=== PATIENT | male | born 1955 | race Caucasian/White ===

== ENCOUNTER 2019-09-27 12:13 | Outpatient (CLI) | payer OTHER, SELFPAY ==
--- NOTE | ~2019-09-27 | XR_ITS ---
XR shoulder LT min 2V DATE: 09/27/2019 13:01 INDICATION: Left shoulder pain, limited range of motion following fall, injury TECHNIQUE: 4 views of left shoulder COMPARISON: None FINDINGS: There are 2 anchor devices in the left humeral head. There is diffuse osteopenia. Normal alignment at the acromioclavicular and glenohumeral joints. There is mild osteoarthritis of th e left glenohumeral joint. No fracture, dislocation, periosteal reaction or bone destruction or significant abnormal left should er calcification is noted. IMPRESSION: Osteopenia Postoperative change Mild osteoarthritis at the glenohumeral joint Reviewed, dictated and finalized at location A.
--- NOTE | ~2019-09-27 | XR_ITS ---
EXAMINATION: XR knee RT min 4V DATE: 09/27/2019 13:01 INDICATION: Right knee pain. TECHNIQUE: 4 views of right knee were obtained. COMPARISON: None. FINDINGS: Bone alignment is normal. No fracture. There is mild tricompartmental osteoarthritis. No kn ee joint effusion. IMPRESSION: 1. Mild right knee osteoarthritis. Reviewed, dictated and finalized at location A.
== END 2019-09-27 12:14 | disposition home or self-care (01) ==
PROVIDERS: PCP Family Medicine Adolescent Medicine; Visit Provider Family Medicine Adolescent Medicine
DX: M17.11 Unilateral primary osteoarthritis, right knee (principal); M85.88 Other specified disorders of bone density and structure, other site; M19.012 Primary osteoarthritis, left shoulder
CPT/HCPCS: 73030; 73564

== ENCOUNTER 2019-11-10 13:26 | Outpatient (CLI) | payer OTHER, SELFPAY ==
--- NOTE | ~2019-11-10 | MR_ITS ---
EXAMINATION: MR knee RT wo con DATE: 11/10/2019 14:39 INDICATION: Unspecified injury of right lower leg, initial encounter. Right knee pain. TECHNIQUE: Magnetic resonance imaging (MRI) of the right knee was performed without intravenous contr ast. Sequences included axial PD-weighted FS FSE, coronal PD-weighted FSE and PD-weighted FS FSE, sag ittal PD-weighted FSE, and sagittal T2-weighted FS FSE. COMPARISON: Right knee radiographs 11/07/2019 FINDINGS: Medial compartment: Medial meniscus is normal. There is cartilage surface irregularity of tibial condyle and femoral cond yle. There are tiny marginal osteophytes. Lateral compartment: Lateral meniscus is normal. There is cartilage surface irregularity of tibial condyle and femoral con dyle. There are tiny marginal osteophytes. Patellofemoral compartment: There is shallow partial-thickness cartilage loss of patellar lateral facet. There is full-thickness cartilage loss of lateral and central trochlea with mild subchondral edema-like marrow signal intensi ty. Ligaments and tendons: The anterior and posterior cruciate ligaments are normal. Medial collateral ligament is intact. There are changes of prior sprain of fibular collateral ligament characterized by increased signal intensi ty proximally. There is mild patellar tendinopathy. Fluid: There is a small knee joint effusion. There is trace fluid in a Estrada's cyst. IMPRESSION: 1. Severe chondrosis of patellofemoral compartment and mild chondrosis of medial and lateral compartm ents. 2. Small knee joint effusion. Reviewed, dictated and finalized at location A. IMPRESSION: 1. Severe chondrosis of patellofemoral compartment and mild chondrosis of media l and lateral compartments. 2. Small knee joint effusion.
== END 2019-11-10 13:27 | disposition home or self-care (01) ==
LOC: ANHIMG 13:31
PROVIDERS: PCP Family Medicine Adolescent Medicine; Visit Provider Orthopaedic Surgery
DX: S89.91XA Unspecified injury of right lower leg, initial encounter (principal); X58.XXXA Exposure to other specified factors, initial encounter; M25.461 Effusion, right knee
CPT/HCPCS: 73721

== ENCOUNTER 2020-01-17 11:18 | Outpatient (CLI) | payer OTHER, SELFPAY ==
--- NOTE | 2020-01-17 11:20 | ECG_ITS ---
Measurements Intervals [place] Rate: 83 P: 36 HI: 144 QRS: -1 QRSD: 93 T: 1 QT: 344 QTc: 404 Interpretive Statements SINUS RHYTHM EARLY PRECORDIAL R/S TRANSITION VOLTAGE CRITERIA FOR LVH BORDERLINE T WAVE ABNORMALITY- INFERIOR LEADS BORDERLINE ECG Electronically Signed On 01-17-2020 12:13:50 CDT by Aftab Schwab D.O.
[2020-01-17 12:01] LABS: Anion Gap 9 mmol/L (8-16); Blood Urea Nitrogen 18 mg/dL (9-20); Calcium 9.6 mg/dL (8.4-10.2); Carbon Dioxide 33 mmol/L (22-30); Chloride 100 mmol/L (98-107); Estimated Glomerular Filt Rate > 60; Glucose 115 mg/dL (75-110); Potassium 4.3 mmol/L (3.4-5.0); Sodium 142 mmol/L (137-145)
== END 2020-01-17 11:19 | disposition home or self-care (01) ==
LOC: ANHSURGERY 11:20
PROVIDERS: Anesthesiology; PCP Family Medicine Adolescent Medicine; Visit Provider Orthopaedic Surgery
DX: Z01.812 Encounter for preprocedural laboratory examination (principal); E11.9 Type 2 diabetes mellitus without complications; Z01.810 Encounter for preprocedural cardiovascular examination; R94.39 Abnormal result of other cardiovascular function study
CPT/HCPCS: 36415; 80048; 93005

== ENCOUNTER 2020-01-20 01:16 | Outpatient (CLI) | payer OTHER, SELFPAY ==
[2020-01-20 18:11] LABS: SARS-CoV-2 RNA PCR Negative
== END 2020-01-20 01:17 | disposition home or self-care (01) ==
LOC: ANHCOVIDDT 01:16
PROVIDERS: Anesthesiology; PCP Family Medicine Adolescent Medicine; Visit Provider Orthopaedic Surgery
DX: Z20.828 Contact with and (suspected) exposure to other viral communicable diseases (principal)
CPT/HCPCS: 87635; C9803; U0003

== ENCOUNTER 2020-01-22 03:05 | Day surgery (SDC) | payer OTHER, SELFPAY ==
[2020-01-15 09:32] VITALS: BMI 29.2
[2020-01-22] VITALS (9 sets, daily range): BP systolic 102–184; BP diastolic 56–92; PULSE 66–90; RESP 12–20; TEMP 36.1–36.9; O2SAT 98–100; BMI 28.2
--- NOTE | 2020-01-22 05:49 | WPDANESEPP ---
Anes - Eval Pre Procedure Procedure: Operation Date: 01/22/20 07:30 Proposed Procedures p Right Knee Arthroscopy, Proceed As Indicated - Erik Watson MD Date/Time: 01/22/20 05:49 Pre Op Diagnosis: Chondromalacia Right Knee Patient Data Age: 64 Gender: M Height: 5 ft 11 in Weight: 95 kg Allergies Allergy/AdvReac Type Severity Reaction Status Date / Time aloe Allergy Severe SEVERE RASH Verified 01/15/20 09:28 Sulfa (Sulfonamide Allergy Unknown Rash Verified 01/15/20 09:28 Antibiotics) Home Medications Medication Instructions Recorded Confirmed Type metformin 500 mg tablet 500 mg PO BID 11/08/19 01/15/20 History tadalafil 5 mg tablet 5 mg PO DAILY 11/08/19 01/15/20 History testosterone 4 pump TRANSDERM DAILY 11/08/19 01/15/20 History naproxen sodium [Aleve] 220 mg PO BID 01/15/20 01/15/20 History pioglitazone 30 mg PO DAILY 01/15/20 01/15/20 History Patient hx anesthesia problems: none Family hx anesthesia problems: none PMFSH Past Medical History Medical History (Updated 01/22/20 @ 05:50 by Emil Coats CRNA) Diabetes Low testosterone Overweight (BMI 25.0-29.9) Seasonal allergies Surgical History Surgical History History of shoulder surgery RTC Repair S/P rotator cuff repair Family History Family History Other Diabetes mellitus Malignant neoplasm Social History Social History Smoking status: Never smoker Alcohol intake: current Alcohol use details: 6 PER YEAR Living arrangements: with family Comments VR 83 SINUS RHYTHM EARLY PRECORDIAL R/S TRANSITION VOLTAGE CRITERIA FOR LVH BORDERLINE T WAVE ABNORMALITY- INFERIOR LEADS BORDERLINE ECG Exam Day of Procedure 01/22/20 05:49
[2020-01-22] MEDS: ACETAMINOPHEN 500 MG TABLET 1000 MG PO (06:34)
[2020-01-22] MEDS: CELECOXIB 200 MG CAPSULE PO (06:34)
[2020-01-22] MEDS: LACTATED RINGERS 1,000 ML 30 ML IV CONT ×2 (06:45→08:40)
[2020-01-22 06:58] LABS: Glucose Point of Care 175 (65-105)
--- NOTE | 2020-01-22 07:00 | WPDANESEFPP ---
Anes - Eval Final PreProcedure Day of Procedure 01/22/20 07:00 Patient weight: overweight Heart: regular rate and rhythm Lungs: clear to auscultation Airway: Mallampati scale class II Neurological: alert and oriented Last oral intake: >/= 8 hours ASA classification: II Emergent: no Anesthetic plan: proceed Anesthesia type and monitoring: general LMA and standard monitoring Informed Consent: The patient's anesthetic plan and its attendant risks and benefits were discussed with the patient/family/POA. Questions were solicited and answers provided to the satisfaction of the patient/family/POA.
--- NOTE | 2020-01-22 07:26 | WPDHPUPDATE1 ---
History and Physical Update Update Date/Time: 01/22/20 07:26 History and Physical has been reviewed, including an updated exam of the patient. There are NO changes in the patient's condition. Risks, benefits, and alternatives have been discussed and questions answered. Patient agrees to proceed with procedure.
[2020-01-22] MEDS: ceFAZolin 2 GM/D5W 50 ML 2 GM/50 ML BAG IVPB (07:33)
--- NOTE | 2020-01-22 08:41 | P.OP_ITS ---
Procedure Note - Detailed Date of procedure: 01/22/20 Pre-op diagnosis: Chondromalacia Right Knee Post-op diagnosis: other (medial meniscus tear, lateral meniscus tear) Procedure performed: RIGHT KNEE SCOPE WITH PARTIAL MEDIAL AND LATERAL MENISCECTOMY, CHONDROPLASTY, MAJOR SYNOVECTOMY Description of procedure: PATIENT WAS TAKEN TO THE OR. RIGHT LEG WAS PREPPED AND DRAPED STERILE. TROCARS WERE PLACED IN THE USUAL FASHION. CAMERA WAS INTROD UCED. THERE WAS CHONDROMALACIA TO THE PATELLA FEMORAL JOINT. THERE WAS A LOT OF SYNOVITIS IN ALL COMPARTMENTS. THE MEDIAL COMPARTMENT SHOWED CHONDROMALACIA TO THE MED FEMORAL CONDYLE. A SHAVER WAS USED TO PREFORM A CHONDROPLASTY. THERE WAS A SMALL COMPLEX MEDIAL MENISCUS TEAR. THE TEAR WAS RESECTED WITH A BITER AND A SHAVER DOWN TO A SMOOTH BASE. GRADE 2 CHONDROMALACIA UNDERWENT CHONDROPLASTY. WAS ABOUT 10% OF THE MENISCUS WAS REMOVED. THE ACL WAS INTACT. THE LATERAL MENISCUS HAD A SMALL TEAR AT THE ANTERIOR HORN. THE TEAR WAS RESECTED. THE LATERAL COMPARTMENT HAD NO CHONDROMALACIA. THERE WAS SYNOVITIS THAT WAS RESECTED. THE PATELLO FEMORAL JOINT UNDERWENT CHONDROPLASTY. THERE WAS GRADE 3 CHONDROMALACIA IN MOST OF THE TROCHLEA AND PART OF THE PATELLA. THERE WAS A SMALL AREA ON THE TROCHLEA WHICH HAD A FULL THICKNESS DEFECT. SYNOVECTOMY WAS PREFORMED IN THE SUPERIOR MEDIAL COMPARTMENT DUE TO A LARGE PLICA BAND WHICH WAS IMPINGING ON THE TROCHLEA IN FLEXION. THE PATELLA TRACKED WELL WITH NO TILT WITHIN THE TROCHLEA. THE WOUNDS WERE APPROXIMATED WITH 4.0 NYLON. STERILE DRESSING WAS APPLIED. PATIENT WAS EXTUBATED. Anesthesia: GLMA Surgeon: Erik Watson MD Estimated blood loss (mL): 5 Complications: No immediate complications Condition: stable Disposition: PACU
[2020-01-22 08:47] LABS: Glucose Point of Care 191 (65-105)
== END 2020-01-22 10:45 | disposition home or self-care (01) ==
PROVIDERS: PCP Family Medicine Adolescent Medicine; Visit Provider Orthopaedic Surgery
PROC: (CPT 29870; principal; 2020-01-22 07:30)
DX: M94.261 Chondromalacia, right knee (principal); M65.861 Other synovitis and tenosynovitis, right lower leg; S83.231A Complex tear of medial meniscus, current injury, right knee, initial encounter; S83.281A Other tear of lateral meniscus, current injury, right knee, initial encounter; W19.XXXA Unspecified fall, initial encounter; E11.9 Type 2 diabetes mellitus without complications; E29.1 Testicular hypofunction; Z79.84 Long term (current) use of oral hypoglycemic drugs
CPT/HCPCS: 29880; A9270; J0690; J2250; J2405; J2704; J3010; J7120

== ENCOUNTER 2020-06-04 13:04 | Outpatient (CLI) | payer OTHER, SELFPAY ==
--- NOTE | ~2020-06-04 | XR_ITS ---
XR shoulder RT min 2V DATE: 06/04/2020 13:24 INDICATION: Fall 3 weeks ago; right shoulder pain TECHNIQUE: 5 views COMPARISON: 02/23/2009 right shoulder is not available from PACS at this time. FINDINGS: There are multiple radiopaque anchor devices of the right humeral head. Diffuse osteopenia. No fracture, dislocation, periosteal reaction or bone destruction. No significant abnormal calcificat ion of the right shoulder. IMPRESSION: Postoperative change of the right humeral head Reviewed, dictated and finalized at location B. NESS STRATEGIST
== END 2020-06-04 13:05 | disposition home or self-care (01) ==
PROVIDERS: PCP Family Medicine Adolescent Medicine; Visit Provider Family Medicine Adolescent Medicine
DX: M25.511 Pain in right shoulder (principal)
CPT/HCPCS: 73030

== ENCOUNTER → 2020-06-19 07:42 | Outpatient (CLI) | payer OTHER, SELFPAY ==
--- NOTE | ~2020-06-19 | MR_ITS ---
EXAMINATION: MR shoulder RT wo con DATE: 06/19/2020 08:34 INDICATION: Worsening right shoulder pain, weakness and limited range of motion post fall 6 months pr ior TECHNIQUE: Magnetic resonance imaging (MRI) of the right shoulder was performed without intravenous c ontrast. Sequences included axial PD-weighted FS FSE, coronal oblique PD-weighted FS FSE, coronal obl ique T2-weighted FS FSE, sagittal PD-weighted FS FSE, and sagittal T1-weighted SE. COMPARISON: Right shoulder radiographs dated 06/04/2020 FINDINGS: Coracoacromial arch: The acromion undersurface is curved in morphology (type II). The coracoacromial ligament is normal. M oderate acromioclavicular osteoarthritis. Rotator cuff: Screws are seen along the superior facet and extending distally along the lateral margin of the great er tuberosity consistent with prior rotator cuff repair. There are additional postoperative changes w ith foci of susceptibility artifact along the undersurface of the anterior deltoid muscle. Mild to mo derate supraspinatus and infraspinatus tendinopathy without discrete tear. The teres minor tendon is normal. There is moderate to severe fatty atrophy of the subscapularis muscle but with intact appeari ng tendon. Remainder of the rotator cuff musculature is unremarkable. Biceps tendon, glenoid labrum and glenohumeral cartilage: There is a normal anterior sublabral foramen and medially curving subtle labral sulcus at the superio r glenoid. This transitions to a tear at the base of the posterior superior labrum with delamination at the chondral labral junction which becomes progressively more shallow extends inferiorly to approx imately the 9:00 position. There is partial thickness cartilage loss and mild surface regularity russell g the posterior superior rim of the glenoid additional along the inferomedial and cephalad aspects of the humeral head. The long head of the biceps tendon is not visualized and likely torn and retracted or resected below the level of the intertubercular groove. Fluid: Physiologic amount of fluid in the glenohumeral joint. No loose osteochondral bodies. Minimal fluid s ignal in the subacromial/subdeltoid bursa consistent with very mild bursitis. Bones: Bone alignment is normal. No fracture or pathologic marrow replacing process. IMPRESSION: 1. Postoperative change of prior rotator cuff repair with anchors at the superior facet and mild to m oderate supraspinatus and infraspinatus tendinopathy without discrete tear. 2. Moderate to severe fatty atrophy of the subscapularis muscle belly of indeterminate etiology with intact appearing tendon. 3. Mild glenohumeral osteoarthritis with posterior superior labral tear. 4. Moderate acromioclavicular osteoarthritis. 5. Nonvisualization of the long head biceps tendon likely related to prior tear and distal retraction or tenotomy. Reviewed, dictated and finalized at location B. OBSERVER IMPRESSION: 1. Postoperative change of prior rotator cuff repair with anchors at the superi or facet and mild to moderate supraspinatus and infraspinatus tendinopathy with out discrete tear. 2. Moderate to severe fatty atrophy of the subscapularis muscle belly of indete rminate etiology with intact appearing tendon. 3. Mild glenohumeral osteoarthritis with posterior superior labral tear. 4. Moderate acromioclavicular osteoarthritis. 5. Nonvisualization of the long head biceps tendon likely related to prior tear and distal retraction or tenotomy.
== END ==
PROVIDERS: PCP Family Medicine Adolescent Medicine; Visit Provider Family Medicine Adolescent Medicine
DX: M19.011 Primary osteoarthritis, right shoulder (principal)
CPT/HCPCS: 73221

== ENCOUNTER 2022-06-27 07:35 | Day surgery (SDC) | payer MEDICARE, SELFPAY ==
[2022-06-15 12:15] VITALS: BMI 26.1
--- NOTE | 2022-06-27 08:08 | PM.HPGS ---
History of Present Illness History of Present Illness Consent: Risks, benefits, and alternatives have been discussed and questions answered. Patient agrees to proceed with procedure. Chief complaint: Neoplasm Screening Narrative: Aj Chapa is a 67 year old male Presents for screening colonoscopy. Patient's sister was found to have colon cancer. Patient presents today for surveillance colonoscopy. Patient reports that his own weight appetite bowel movements are normal. Patient denies abdominal pain. He has had no bleeding. Family history as stated. Previous colonoscopy 2017 was unremarkable. Review of Systems Review of Systems: Review of systems noncontributory. [facility] Past Medical History Medical History Diabetes Low testosterone Normal colonoscopy 07/02 Repeat 07/07 Overweight (BMI 25.0-29.9) Right shoulder pain Seasonal allergies Surgical History Surgical History History of shoulder surgery RTC Repair Hx of arthroscopy of right knee 2020 S/P rotator cuff repair Family History Family History Other Diabetes mellitus Malignant neoplasm Social History Social History (Updated 12/17/21 @ 10:05 by Cornelia Membreno MA) Smoking status: Never smoker Second hand tobacco smoke exposure: No Alcohol intake: current Alcohol use details: 6 PER YEAR Substance use: never Substance use type: does not use Living arrangements: with family Occupation/Education: occupation Gender identity (if verbalized by the patient): Male Sexual Orientation (if Verbalized by the Patient): Straight or Heterosexual Spiritual care concerns: No Agree to blood products: Yes Meds Home Medications and Allergies Home Medications Medication Instructions Recorded Confirmed Type acetaminophen 300 mg-codeine 30 mg 1 tablet PO Q6H PRN pain #50 tabs 07/27/21 06/27/22 Rx tablet semaglutide 0.25 mg or 0.5 mg (2 0.5 mg (0.4 mL) subcut WEEKLY #4.5 07/27/21 06/27/22 Rx mg/1.5 mL) subcutaneous pen mL injector (Ozempic) blood sugar diagnostic (Accu-Chek #100 ea 08/02/21 06/27/22 Rx Bee Plus test strips) testosterone 12.5 mg/1.25 gram per 4 pump transdermal DAILY #150 grams 01/26/22 06/27/22 Rx pump actuation (1%) transdermal gel tadalafil 5 mg tablet (Cialis) 5 mg PO DAILY #30 tabs 03/14/22 06/27/22 Rx sodium,potassium,mag sulfates 17.5 See Rx Instructions PO .COMPLEX 05/26/22 06/27/22 Rx gram-3.13 gram-1.6 gram oral soln #354 mL (Suprep Bowel Prep Kit) metformin 500 mg tablet,extended 500 mg PO BID 06/15/22 06/27/22 History release 24 hr Allergies Allergy/AdvReac Type Severity Reaction Status Date / Time aloe Allergy Severe SEVERE RASH Verified 06/27/22 07:52 Sulfa (Sulfonamide Allergy Unknown Rash Verified 06/27/22 07:52 Antibiotics) rosuvastatin AdvReac Unknown Joint Pain Verified 06/27/22 07:52 Exam Narrative: Physical exam reveals patient to be alert. Vital signs stable. HEENT exam is unremarkable. Patient is anicteric. Lungs are clear to auscultation and percussion. Heart is without murmur or extra sounds. Abdomen bowel sounds are present soft nontender with no organomegaly. Digital external rectal exam is normal. Assessment and Plan Assessment and plan (1) Family hx of colon cancer: Code(s): Z80.0 - Family history of malignant neoplasm of digestive organs Status: Acute Assessment and Plan: Patient's sister had colon cancer. Plan for surveillance colonoscopy now and consider this a 5 year intervals in the future.
[2022-06-27 08:22] LABS: Glucose Point of Care 158 mg/dl (65-105)
--- NOTE | 2022-06-27 09:00 | WPDANESEPPF ---
Anes - Initial Pre Proc Eval Procedure: Operation Date: 06/27/22 09:00 Proposed Procedures p Screening Colonoscopy - Gerardo Roth MD Date/Time: 06/27/22 09:00 Surgeon: Gerardo Roth MD Pre Op Diagnosis: Neoplasm Screening Patient Data Age: 67 Gender: M Height: 1.8 m Weight: 87.9 kg Allergies Allergy/AdvReac Type Severity Reaction Status Date / Time aloe Allergy Severe SEVERE RASH Verified 06/27/22 07:52 Sulfa (Sulfonamide Allergy Unknown Rash Verified 06/27/22 07:52 Antibiotics) rosuvastatin AdvReac Unknown Joint Pain Verified 06/27/22 07:52 Home Medications Medication Instructions Recorded Confirmed Type acetaminophen 300 mg-codeine 30 mg 1 tablet PO Q6H PRN pain #50 tabs 07/27/21 06/27/22 Rx tablet semaglutide 0.25 mg or 0.5 mg (2 0.5 mg (0.4 mL) subcut WEEKLY #4.5 07/27/21 06/27/22 Rx mg/1.5 mL) subcutaneous pen mL injector ([employer]) blood sugar diagnostic (Accu-Chek #100 ea 08/02/21 06/27/22 Rx Bee Plus test strips) testosterone 12.5 mg/1.25 gram per 4 pump transdermal DAILY #150 grams 01/26/22 06/27/22 Rx pump actuation (1%) transdermal gel tadalafil 5 mg tablet (Cialis) 5 mg PO DAILY #30 tabs 03/14/22 06/27/22 Rx sodium,potassium,mag sulfates 17.5 See Rx Instructions PO .COMPLEX 05/26/22 06/27/22 Rx gram-3.13 gram-1.6 gram oral soln #354 mL (Suprep Bowel Prep Kit) metformin 500 mg tablet,extended 500 mg PO BID 06/15/22 06/27/22 History release 24 hr Laboratory Tests 06/27/22 08:19 POC Capillary Glucose 158 mg/dl H mg/dl (65-105) Patient hx anesthesia problems: none Family hx anesthesia problems: none Results Review: All pre-operative results and documents have been reviewed as part of the pre-operative evaluation. [facility] Past Medical History Medical History Diabetes Low testosterone Normal colonoscopy 07/02 Repeat 07/07 Overweight (BMI 25.0-29.9) Right shoulder pain Seasonal allergies Surgical History Surgical History History of shoulder surgery RTC Repair Hx of arthroscopy of right knee 2020 S/P rotator cuff repair Family History Family History Other Diabetes mellitus Malignant neoplasm Social History Social History (Updated 12/17/21 @ 10:05 by Cornelia Membreno MA) Smoking status: Never smoker Second hand tobacco smoke exposure: No Alcohol intake: current Alcohol use details: 6 PER YEAR Substance use: never Substance use type: does not use Living arrangements: with family Occupation/Education: occupation Gender identity (if verbalized by the patient): Male Sexual Orientation (if Verbalized by the Patient): Straight or Heterosexual Spiritual care concerns: No Agree to blood products: Yes Anes - Eval Final PreProcedure Day of Procedure 06/27/22 09:00 Patient weight: overweight Heart: regular rate and rhythm Lungs: clear to auscultation Airway: Mallampati scale class II Neurological: alert and oriented Last oral intake: >/= 8 hours ASA classification: III Emergent: no Anesthetic plan: proceed Anesthesia type and monitoring: general GIVS and standard monitoring Results Review: All pre-operative results and documents have been reviewed as part of the pre-operative evaluation. Informed Consent: The patient's anesthetic plan and its attendant risks and benefits were discussed with the patient/family/POA. Questions were solicited and answers provided to the satisfaction of the patient/family/POA.
[2022-06-27 09:02] VITALS: BP 170/93; PULSE 73; RESP 18; TEMP 36.3; O2SAT 100
[2022-06-27] MEDS: LACTATED RINGERS 1,000 ML 150 ML IV CONT (09:03)
[2022-06-27 10:14] VITALS: BP 135/81; PULSE 88; RESP 20; O2SAT 97
[2022-06-27 10:17] VITALS: BP 127/73; PULSE 89; RESP 16; O2SAT 99
[2022-06-27 10:24] VITALS: BP 129/87; PULSE 80; RESP 20; O2SAT 97
--- NOTE | 2022-06-27 11:59 | WPDANESPN ---
Anes - Prog Note Post-Op Date/Time: 06/27/22 11:59 Cardiovascular status: normal Respiratory status: normal Airway patency: baseline Mental status: baseline Post-Op hydration status: normal Vital Signs: Last Vital Signs Temp 36.3 C L 06/27/22 09:02 Pulse 80 06/27/22 10:24 Resp 20 06/27/22 10:24 BP 129/87 06/27/22 10:24 Pulse Ox 97 06/27/22 10:24 O2 Del Method Room Air 06/27/22 10:24 Pain Score (VAS): 0 I/O: Intake & Output 06/26/22 06/27/22 06/27/22 23:59 07:59 15:59 Intake Total 700 Balance 700 06/27/22 08:19 POC Capillary Glucose 158 H Post-procedural complaints: none Patient Feedback: Patient satisfied with anesthetic care.
== END 2022-06-27 10:47 | disposition home or self-care (01) ==
PROVIDERS: PCP Family Medicine Adolescent Medicine; Visit Provider Internal Medicine Gastroenterology
PROC: 0DJD8ZZ Inspection of Lower Intestinal Tract, Via Natural or Artificial Opening Endoscopic (ICD-10-PCS; CPT 45378; principal; 2022-06-27 09:00)
DX: Z80.0 Family history of malignant neoplasm of digestive organs (principal)
CPT/HCPCS: 45385

== ENCOUNTER 2022-06-27 09:00 | Outpatient (NON) | payer MEDICARE, SELFPAY | END 2022-06-27 09:01 | disposition home or self-care (01) | PROVIDERS: PCP Family Medicine Adolescent Medicine; Visit Provider Internal Medicine Gastroenterology | DX: K63.5 Polyp of colon (principal) | CPT/HCPCS: 88305 ==

== ENCOUNTER → 2023-02-03 10:51 | Outpatient (CLI) | payer MEDICARE, SELFPAY ==
--- NOTE | ~2023-02-03 | XR_ITS ---
Right foot Technique: AP and lateral views were obtained. Clinical History: First MTP pain Findings: No acute fracture or dislocation is seen. There is moderate degenerative change the first M TP joint. Soft tissues are unremarkable. Impression: Moderate degenerative change of the first MTP joint. Reviewed, dictated and finalized at location . Impression: Moderate degenerative change of the first MTP joint.
== END ==
PROVIDERS: PCP Family Medicine Adolescent Medicine; Visit Provider Nurse Practitioner Family
DX: M79.672 Pain in left foot (principal)
CPT/HCPCS: 73620

== ENCOUNTER 2024-08-15 14:13 | Outpatient (CLI) | payer MEDICARE, SELFPAY ==
--- NOTE | ~2024-08-15 | XR_ITS ---
3 VIEWS LUMBAR SPINE Ordering provider: Ian Mejia MD History: . Chronic low back pain with right sciatica . Comparison: July 17, 2013. FINDINGS: VERTEBRAL BODIES: No visible fracture or subluxation. Dextroscoliosis. Degenerative changes of the sp ine. DISK SPACES: Narrowing of the disc L1-L2, L2-L3, L3-L4 and L4-L5. Multilevel facet joint disease. SOFT TISSUES: Normal. Left sacroiliitis. IMPRESSION: No acute osseous abnormality lumbar spine. Multilevel degenerative disc disease. Reviewed, dictated and finalized at location A.
== END 2024-08-15 14:14 | disposition home or self-care (01) ==
LOC: MICIMG 14:13
PROVIDERS: PCP Family Medicine Adolescent Medicine; Visit Provider Family Medicine Adolescent Medicine
DX: M54.31 Sciatica, right side (principal); M51.369 Other intervertebral disc degeneration, lumbar region without mention of lumbar back pain or lower extremity pain
CPT/HCPCS: 72100

== ENCOUNTER 2024-10-17 14:17 | Outpatient (CLI) | payer MEDICARE, SELFPAY ==
--- NOTE | ~2024-10-17 | MR_ITS ---
MRI of the lumbar spine Clinical History: Back pain, right sciatica Technique: Axial T2-weighted images, and sagittal T1-weighted, T2-weighted, and T2 fat-sat images wer e acquired. Findings: There is mild reversal of the normal lumbar lordosis. There is a 3 mm retrolisthesis of L3 over L4. There is 4 mm anterolisthesis of L4 over L5. No suspicious bone marrow signal abnormality se en. At L1-L2, there is moderate to advanced degenerative disc disease. There is minimal disc bulge with a dvanced facet arthropathy. There is moderate central canal stenosis/thecal sac compression. There is mild left neural foraminal narrowing. Right neural foramen preserved. At L2-L3, there is severe degenerative disc narrowing with probable partial fusion across to the spac e. There is moderate to advanced facet arthropathy. No definite central canal stenosis. There is symone re left neural foraminal narrowing, and mild to moderate right neural foraminal narrowing. L3-L4, there is severe degenerative disc narrowing. There is mild disc bulge with severe facet arthro williams. No isaac central canal stenosis. There is severe right neural foraminal narrowing, and moderat e left neural foraminal narrowing. At L4-L5, there is advanced degenerative disc narrowing. There is diffuse disc bulge with severe face t arthropathy. There is mild to moderate central canal stenosis. There is severe right neural foramin al narrowing, and moderate to advanced left neural foraminal narrowing. L5-S1, there is minimal disc bulge with severe facet arthropathy. No central canal stenosis. There is moderate bilateral neural foraminal narrowing. Paravertebral soft tissues are unremarkable. Impression: Advanced degenerative spondylosis overall, as detailed above. 3 mm retrolisthesis of L3 over L4. 4 mm anterolisthesis of L4 over L5. Reviewed, dictated and finalized at [facility]. Impression: Advanced degenerative spondylosis overall, as detailed above. 3 mm retrolisthesis of L3 over L4. 4 mm anterolisthesis of L4 over L5.
== END 2024-10-17 14:18 | disposition home or self-care (01) ==
LOC: GOSHIMG 14:17
PROVIDERS: PCP Family Medicine Adolescent Medicine; Visit Provider Family Medicine Adolescent Medicine
DX: M54.31 Sciatica, right side (principal); M47.896 Other spondylosis, lumbar region
CPT/HCPCS: 72148